=== PATIENT | female | born 1970 | race Caucasian/White ===

== ENCOUNTER 2020-02-08 01:51 | Emergency (ER) | payer BC ==
[~2020-02-08] VITALS: Ht 167.6 cm; Wt 68.0 kg
--- OUTSIDE RECORDS SUMMARY | ~2020-02-08 | XMS | Encounter Summary ---
Demographics + + + | Address | [address] | | | [place] [address] | + + + | Home Phone | | + + + | Preferred Language | Unknown | + + + | Marital Status | Unknown | + + + | Yarsanism Affiliation | Unknown | + + + | Race | Unknown | + + + | Ethnic Group | Unknown | + + + Author + + + | Author | [facility] | | | and [place] | + + + | Organization | [facility] | | | and [place] | + + + | Address | Unknown | + + + | Phone | Unavailable | + + + Care Team Providers + +------+ + | Care Community Organization Worker Name | Role | Phone | + +------+ + PCP | Unavailable | + +------+ + Encounter Details +--------+ + + + + | Date | Type | Department | Care Team | Description | +--------+ + + + + | 07/22/ | [facility] | [facility] | | | | 2006 | Encounter | MED CTR GENERIC OP | | | | | | CONV DEPT [address] | | | | | | [place], | | | | | | [place] [id number] | | | | | | [phone] | | | +--------+ + + + + Social History + +-------+ +--------+------+ | Tobacco Use | Types | Packs/Day | Years | Date | | | | | Used | | + +-------+ +--------+------+ | Never Assessed | | | | | + +-------+ +--------+------+ + + + | Sex Assigned at | Date Recorded | | | | + + + | Not on file | | + + + documented as of this encounter Plan of Treatment Not on filedocumented as of this encounter Visit Diagnoses Not on filedocumented in this encounter"
--- OUTSIDE RECORDS SUMMARY | ~2020-02-08 | XMS | Clinical Summary ---
Demographics + + + | Address | [address] | | | [place] [address] | + + + | Home Phone | | + + + | Preferred Language | Unknown | + + + | Marital Status | Unknown | + + + | Church Affiliation | Unknown | + + + | Race | Unknown | + + + | Ethnic Group | Unknown | + + + Author + + + | Author | [facility] | | | and [place] | + + + | Organization | [facility] | | | and [place] | + + + | Address | Unknown | + + + | Phone | Unavailable | + + + Care Team Providers + +------+ + | Care Automotive Sales Representative Name | Role | Phone | + +------+ + PCP | Unavailable | + +------+ + Allergies Not on File Medications Not on file Active Problems Not on file Social History + +-------+ +--------+------+ | Tobacco [...] on file | | + + + Last Filed Vital Signs Not on file Plan of Treatment + + +-------+ + | Health Maintenance | Due Date | Last | Comments | | | | Done | | + + +-------+ + | Vaccine: | | | | | Dtap/Tdap/Td (1 - | 1 | | | | Tdap) | | | | + + +-------+ + | Cervical Cancer | | | | | Screening (Pap) | 2 | | | + + +-------+ + | Breast Cancer | | | | | Screening | 7 | | | + + +-------+ + | Vaccine: Influenza | | | | | (#1) | 0 | | | + + +-------+ + Results Not on filefrom Last 3 Months"
[2020-02-08] MEDS ORDERED: KEFLEX500 MG PO (02:45)
== END 2020-02-08 02:54 | disposition home or self-care (01) ==
LOC: ED 01:51
DX: K02.9 Dental caries, unspecified (principal); J45.909 Unspecified asthma, uncomplicated; G43.909 Migraine, unspecified, not intractable, without status migrainosus; F17.200 Nicotine dependence, unspecified, uncomplicated; Z88.8 Allergy status to other drugs, medicaments and biological substances; Z88.5 Allergy status to narcotic agent
CPT/HCPCS: 99282

== ENCOUNTER 2023-02-02 14:54 | Emergency (ER) | payer OTHER ==
[~2023-02-02] VITALS: Ht 167.6 cm; Wt 70.1 kg
[~2023-02-02 14:54] MED LIST: KEFLEX500 MG PO
[2023-02-02] MEDS ORDERED: EPIPEN 2-P0.3 MG/0.3 IM (15:31)
[2023-02-02 16:24] VITALS: BP 170/100
== END 2023-02-02 16:25 | disposition home or self-care (01) ==
LOC: ED 14:54
DX: T63.441A Toxic effect of venom of bees, accidental (unintentional), initial encounter (principal); F17.200 Nicotine dependence, unspecified, uncomplicated; Z88.5 Allergy status to narcotic agent
CPT/HCPCS: 99282; Q0163

== ENCOUNTER 2023-10-22 20:02 | Emergency (ER) | payer OTHER ==
[~2023-10-22] VITALS: Ht 167.6 cm; Wt 68.0 kg
[~2023-10-22 20:02] MED LIST changes: +EPIPEN 2-P0.3 MG/0.3 IM
--- OUTSIDE RECORDS SUMMARY | 2023-10-22 20:10 | XMS ---
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 - Patient eloped before treatment completed. - Patient with suicidal and/or homicidal ideations eloped. Details: Patient LWBS CRITERIA MET - Group Notification CARE PROVIDERS -, [facility] Dentist: Biophysics Scientist [facility] PHONE: [phone] -Francis- Dentist: Biophysics Scientist [facility] PHONE: [phone] [facility]/Center: [facility] Current \F\ [facility] PHONE: [phone] Marko has no Care Guidelines for this patient. [place] VISIT COUNT (12 MO.) 3 MIGUEL Demarco TOTAL 3 NOTE: Visits indicate total known visits. ED/UCC VISIT TRACKING (12 MO.) 10/22/2023 20:02 [facility] OR TYPE: Emergency COMPLAINT: - CHEST PAIN 03/31/2023 17:45 [facility] TYPE: Emergency COMPLAINT: - COLD SYMPTOMS 02/02/2023 14:54 [facility] TYPE: Emergency COMPLAINT: - BEE STING DIAGNOSES: - Allergy status to narcotic agent - Nicotine dependence, unspecified, uncomplicated - Toxic effect of venom of bees, accidental (unintentional), initial encounter INPATIENT VISIT TRACKING (12 MO.) No inpatient visits to display in this time frame [email or web address]
[2023-10-22 20:26] LABS: MCV 88.9 fl (81-99)
[2023-10-22 20:29] LABS: BASOPHILS 0.5 % (0-2); HEMATOCRIT 42.6 % (35.0-50.0); HEMOGLOBIN 14.8 g/dL (12.0-18.0); LYMPHOCYTES 22.8 % (24-44); MCH 30.9 (27-36); MCHC 34.7 g/dl (30-36); MONOCYTES 9.2 % (0-12); NEUTROPHILS 62.5 % (39-80); PLATELET COUNT 255 K/uL (140-440); RDW 13.1 (10.5-15.0)
[2023-10-22] MEDS ORDERED: NITROGLYCERIN 0.4 MG SUBL SL PRN (20:30)
[2023-10-22] MEDS ORDERED: ALBUTEROL/IPRATROPIUM 3 ML NEB INH ONE (20:30)
[2023-10-22] MEDS ORDERED: methylPREDNISolone SOD SUCC 125 MG/2 ML VIAL IV ONE (20:30)
[2023-10-22] MEDS ORDERED: ASPIRIN 81 MG CHEW PO ONE (20:30)
[2023-10-22 20:42] LABS: ALBUMIN 3.6 g/dL (3.4-5.0); ALBUMIN/GLOBULIN RATIO 0.92 (1.1-2.4); ANION GAP 11.6 (7-21); BILIRUBIN, TOTAL 0.2 ng/dL (0.2-1.0); BUN/CREATININE RATIO 19.14 (6.0-28.6); CALCIUM 9.1 mg/dL (8.5-10.1); CREATININE, SERUM 0.94 mg/dL (0.55-1.02); MAGNESIUM 1.9 mg/dL (1.8-2.4); POTASSIUM 4.6 mmol/L (3.5-5.1); PROTEIN, TOTAL 7.5 g/dL (6.4-8.2)
[2023-10-22] MEDS ORDERED: ondansetron HCL 4 MG/2 ML VIAL IV ONE (20:45)
[2023-10-22] MEDS ORDERED: LORazepam 2 MG/ML VIAL IV ONE (20:45)
[2023-10-22] MEDS ORDERED: LACTATED RINGER'S 1,000 ML IV ONE (20:45)
[2023-10-22 21:38] LABS: BILIRUBIN, URINE NEGATIVE (negative); BLOOD/HGB, URINE MODERATE (Negative); KETONE, URINE NEGATIVE (Negative); LEUK ESTERASE, URINE NEGATIVE (negative); NITRITE, URINE NEGATIVE (negative); PH, URINE 5.5 (5-7)
[2023-10-22 21:44] LABS: EPITHELIAL CELLS, URINE SQUAMOUS 1+ /lpf (0-1+)
[2023-10-22 21:45] LABS: BACTERIA, URINE RARE /hpf (negative); CASTS, URINE NONE SEEN \\lpf; CRYSTALS, URINE NONE SEEN (0-1+); REFLEX CULTURE, URINE No (No)
[2023-10-22 21:53] LABS: AMPHETAMINES, URINE POSITIVE (NEGATIVE); BARBITURATES, URINE NEGATIVE (NEGATIVE); BENZODIAZEPINE, URINE NEGATIVE (NEGATIVE); BUPRENORPHINE, URINE NEGATIVE (NEGATIVE); CANNABINOID, URINE NEGATIVE (NEGATIVE); COCAINE, URINE NEGATIVE (NEGATIVE); ECSTASY, URINE NEGATIVE (NEGATIVE); FENTANYL, URINE NEGATIVE (NEGATIVE); METHADONE, URINE NEGATIVE (NEGATIVE); OPIATES, URINE NEGATIVE (NEGATIVE); OXYCODONE, URINE NEGATIVE (NEGATIVE); PHENCYCLIDINE, URINE NEGATIVE (NEGATIVE)
[2023-10-22] MEDS ORDERED: ALBUTEROL SULFATE 8 GM HOME.PACK INH ONE (23:15)
[2023-10-22] MEDS ORDERED: INHALER, ASSIST DEVICES 1 EACH SPACER MISC ONE (23:15)
[2023-10-22] MEDS ORDERED: PREDNISONE20 MG PO (23:26)
[2023-10-22 23:40] VITALS: BP 136/93
--- NOTE | 2023-10-24 22:12 | EKG ---
[facility] [address] [facility] [place] [address] Signed Sinus tachycardia Right atrial enlargement Borderline ECG When compared with ECG of 22-OCT-2023 20:06, (Unconfirmed) No significant change was found Confirmed by CLARISSA SHAH MD ([id number]) on 10/24/2023 10:12:21 PM Electronically Signed By: CLARISSA SHAH 10/24/232211 PATIENT NAME: SMITH Electrocardiogram DATE OF : 72 PHYSICIAN: CLARISSA SHAH REPORT #: [id number] REPORT IS CONFIDENTIAL AND NOT TO BE RELEASED WITHOUT AUTHORIZATION
== END 2023-10-22 23:40 | disposition home or self-care (01) ==
LOC: ED 20:02
PROVIDERS: Internal Medicine
DX: J20.8 Acute bronchitis due to other specified organisms (principal); R07.2 Precordial pain; F15.90 Other stimulant use, unspecified, uncomplicated; J45.909 Unspecified asthma, uncomplicated; G43.909 Migraine, unspecified, not intractable, without status migrainosus; F17.200 Nicotine dependence, unspecified, uncomplicated; Z88.5 Allergy status to narcotic agent; Z91.030 Bee allergy status
CPT/HCPCS: 36415; 71045; 71260; 80053; 80307; 81001; 83735; 84484; 85025; 85379; 93005; 93010; 94640; 94664; 96375; 99285-25; A9270; J2060; J2405; J2919; J7121; Q9967